=== PATIENT | female | born 1950 | race Caucasian/White ===

== ENCOUNTER 2023-01-26 10:37 | Inpatient (IN) | payer MEDICARE, MEDICAID ==
[~2023-01-26] VITALS: Ht 157.5 cm; Wt 48.4 kg
[2023-01-26 11:21] LABS: COVID AG,FIA SOURCE NASAL SWAB
[2023-01-26 11:52] LABS: INFLUENZA TYPE A NEGATIVE FOR TYPE A (NEGATIVE); INFLUENZA TYPE B NEGATIVE FOR TYPE B (NEGATIVE); SARS-COV2 (COVID) ANTIGEN,FIA Negative (Negative)
[2023-01-26 11:53] LABS: BASOPHILS % (AUTO) 0.8 % (0.0-2.0); EOSINOPHILS % (AUTO) 1.8 % (1.0-6.0); HEMATOCRIT 21.7 % (36-46); HEMOGLOBIN 7.4 g/dL (12.0-16.0); LYMPHOCYTES # (AUTO) 0.7 K/uL (1.0-4.8); LYMPHOCYTES % (AUTO) 6.9 % (22.0-44.0); MEAN CORPUSCULAR HGB CONC 34.3 G/dL (31.0-37.0); MEAN CORPUSCULAR VOLUME 93 fL (80-100); MONOCYTES # (AUTO) 0.8 K/uL (0.1-1.0); MONOCYTES % (AUTO) 7.6 % (2.0-9.0); NEUTROPHILS # (AUTO) 8.6 K/uL (1.8-7.7); NEUTROPHILS % (AUTO) 82.9 % (40.0-70.0); PLATELET COUNT (AUTO) 285 K/uL (150-450); RED BLOOD CELL COUNT(AUTO) 2.33 MIL/uL (4.00-5.20); RED CELL DISTRIBUTION WIDTH 14.5 % (11.5-14.5); WHITE BLOOD COUNT (AUTO) 10.4 K/uL (4.5-11.0)
[2023-01-26 12:06] LABS: CALCIUM, TOTAL 8.6 mg/dL (8.8-10.5); CREATININE 4.03 mg/dL (0.60-1.30); POTASSIUM 3.9 mmol/L (3.5-5.1)
[2023-01-26 12:11] LABS: ALBUMIN 2.6 g/dL (3.4-5.0); BILIRUBIN,TOTAL 0.3 mg/dL (0.1-1.0); TOTAL PROTEIN, SERUM 7.5 g/dL (6.4-8.2)
[2023-01-26 12:16] LABS: TROPONIN I-HIGH SENSITIVITY 72 ng/L (<51)
[2023-01-26 12:26] LABS: LACTIC ACID 1.1 mmol/L (0.4-2.0)
[2023-01-26] MEDS ORDERED: MORPHINE SULFATE 2 MG/ML SYRINGE IVP ONE (13:30)
[2023-01-26] MEDS ORDERED: ONDANSETRON HCL 4 MG/2 ML VIAL IVP ONE (13:30)
[2023-01-26] MEDS ORDERED: DEXTROSE 50%-WATER 25 GM/50 ML SYRINGE IVP PRN (17:15)
[2023-01-26] MEDS ORDERED: INSULIN LISPRO 100 UNITS/ML SQ PRN (17:15)
[2023-01-26] MEDS ORDERED: BISACODYL 10 MG RECTAL RECTAL SUPPOSITORY PR PRN (17:30)
[2023-01-26] MEDS ORDERED: HYDROCODONE/ACETAMINOPHEN 5-325 MG TABLET PO PRN (17:30)
[2023-01-26] MEDS ORDERED: IPRATROPIUM BROMIDE 0.5 MG/2.5 ML NEB SOLUTION NEB PRN (17:30)
[2023-01-26] MEDS ORDERED: MAGNESIUM HYDROXIDE SUSPENSION 30 ML UDCUP PO PRN (17:30)
[2023-01-26] MEDS ORDERED: ALBUTEROL SULFATE 2.5 MG/0.5 ML NEB SOLUTION NEB PRN (17:30)
[2023-01-26] MEDS ORDERED: ONDANSETRON HCL 4 MG/2 ML VIAL IVP PRN (17:30)
[2023-01-26] MEDS ORDERED: MORPHINE SULFATE 2 MG/ML SYRINGE IVP PRN (17:30)
[2023-01-26] MEDS ORDERED: ZOLPIDEM TARTRATE 5 MG TABLET PO PRN (17:30)
[2023-01-26] MEDS ORDERED: SODIUM CHLORIDE 0.9% 500 ML IV ONE (17:34)
[2023-01-26] MEDS: LevETIRAcetam 500 MG in DEXTROSE 5%-WATER 100 ML IV SCH ×2 (17:47→18:33)
[2023-01-26] MEDS: ACETAMINOPHEN 325 MG TABLET PO PRN (17:48)
[2023-01-26] MEDS: CALCIUM ACETATE 667 MG CAPSULE PO SCH (17:48)
[2023-01-26 18:14] VITALS: BP 70/70; PULSE 152; RESP 16; TEMP 97.5
[2023-01-26 19:24] LABS: TROPONIN I-HIGH SENSITIVITY 70 ng/L (<51)
[2023-01-26] MEDS: MIRTAZAPINE 15 MG TABLET PO SCH (21:21)
[2023-01-26] MEDS: TICAGRELOR 90 MG TABLET PO SCH (21:21)
[2023-01-27] VITALS (7 sets, daily range): BP systolic 135–166; BP diastolic 50–84; PULSE 52–85; RESP 16–20; TEMP 97.9–98.9
[2023-01-27] MEDS: HydrALAZINE HCL 50 MG TABLET PO SCH ×3 (00:25→15:08)
[2023-01-27] MEDS: HEPARIN SODIUM,PORCINE 5,000 UNITS/ML VIAL SQ SCH ×3 (00:26→15:08)
[2023-01-27] MEDS: LevETIRAcetam 500 MG in DEXTROSE 5%-WATER 100 ML IV SCH ×2 (04:55→18:19)
[2023-01-27 06:32] LABS: GLUCOMETER DEV NAME(LOC) 5S.2C; GLUCOSE,POINT OF CARE 155 MG/DL (70-110)
[2023-01-27] MEDS ORDERED: DEXTROSE 50%-WATER 25 GM/50 ML SYRINGE IVP PRN (06:45)
[2023-01-27] MEDS: INSULIN LISPRO 100 UNITS/ML SQ PRN ×2 (06:53→23:39)
[2023-01-27] MEDS: CALCIUM ACETATE 667 MG CAPSULE PO SCH ×3 (08:00→18:19)
[2023-01-27 08:46] LABS: GLUCOMETER DEV NAME(LOC) 5N.1C; GLUCOSE,POINT OF CARE 171 MG/DL (70-110)
[2023-01-27] MEDS: CloNIDine HCL 0.2 MG TABLET PO SCH (10:05)
[2023-01-27] MEDS: PANTOPRAZOLE SODIUM 40 MG/VIAL IVP SCH (10:05)
[2023-01-27] MEDS: TICAGRELOR 90 MG TABLET PO SCH ×2 (10:05→21:14)
[2023-01-27] MEDS: LOSARTAN POTASSIUM 50 MG TABLET PO SCH (10:05)
[2023-01-27] MEDS: ATORVASTATIN CALCIUM 20 MG TABLET PO SCH (10:06)
[2023-01-27] MEDS: FUROSEMIDE 80 MG TABLET PO SCH (10:06)
[2023-01-27] MEDS: AmLODIPine BESYLATE 10 MG TABLET PO SCH (10:06)
[2023-01-27] MEDS: MIRTAZAPINE 15 MG TABLET PO SCH (21:16)
[2023-01-27 23:36] LABS: GLUCOMETER DEV NAME(LOC) 5S.1B; GLUCOSE,POINT OF CARE 185 MG/DL (70-110)
[2023-01-28] MEDS: HydrALAZINE HCL 50 MG TABLET PO SCH ×4 (00:07→23:30)
[2023-01-28] MEDS: HEPARIN SODIUM,PORCINE 5,000 UNITS/ML VIAL SQ SCH ×4 (00:11→23:31)
[2023-01-28 05:28] VITALS: BP 138/74; PULSE 60; RESP 20
[2023-01-28 07:16] LABS: GLUCOMETER DEV NAME(LOC) 5S.2C; GLUCOSE,POINT OF CARE 130 MG/DL (70-110)
[2023-01-28] MEDS: LevETIRAcetam 500 MG in DEXTROSE 5%-WATER 100 ML IV SCH ×2 (07:21→17:17)
[2023-01-28] MEDS: FUROSEMIDE 80 MG TABLET PO SCH (08:26)
[2023-01-28] MEDS: PANTOPRAZOLE SODIUM 40 MG/VIAL IVP SCH (08:26)
[2023-01-28] MEDS: CloNIDine HCL 0.2 MG TABLET PO SCH (08:26)
[2023-01-28] MEDS: TICAGRELOR 90 MG TABLET PO SCH ×2 (08:28→20:21)
[2023-01-28] MEDS: AmLODIPine BESYLATE 10 MG TABLET PO SCH (08:28)
[2023-01-28] MEDS: CALCIUM ACETATE 667 MG CAPSULE PO SCH ×3 (08:28→18:04)
[2023-01-28] MEDS: ATORVASTATIN CALCIUM 20 MG TABLET PO SCH (08:29)
[2023-01-28] MEDS: LOSARTAN POTASSIUM 50 MG TABLET PO SCH (08:32)
[2023-01-28 08:41] VITALS: BP 168/55; PULSE 60; RESP 19; TEMP 98.2
[2023-01-28 11:24] VITALS: BP 121/44; PULSE 48; RESP 16; TEMP 97.7
[2023-01-28] MEDS: INSULIN LISPRO 100 UNITS/ML SQ PRN ×2 (11:58→20:23)
[2023-01-28 12:51] LABS: GLUCOMETER DEV NAME(LOC) 5S.2C; GLUCOSE,POINT OF CARE 178 MG/DL (70-110)
[2023-01-28] MEDS: ACETAMINOPHEN 325 MG TABLET PO PRN (12:56)
[2023-01-28 15:14] VITALS: BP 129/46; PULSE 73; RESP 16; TEMP 98.8
[2023-01-28 20:00] VITALS: BP 154/59; PULSE 50; RESP 17; TEMP 97.9
[2023-01-28] MEDS: MIRTAZAPINE 15 MG TABLET PO SCH (20:21)
[2023-01-28 21:21] LABS: GLUCOMETER DEV NAME(LOC) 5S.2C; GLUCOSE,POINT OF CARE 163 MG/DL (70-110)
[2023-01-28 23:27] VITALS: BP 162/71; PULSE 57; RESP 18; TEMP 98
[2023-01-29] VITALS (14 sets, daily range): BP systolic 103–186; BP diastolic 48–77; PULSE 59–81; RESP 1–22; TEMP 97.8–98.4
[2023-01-29] MEDS: LevETIRAcetam 500 MG in DEXTROSE 5%-WATER 100 ML IV SCH ×2 (05:39→18:53)
[2023-01-29 05:56] LABS: GLUCOMETER DEV NAME(LOC) 5S.2C; GLUCOSE,POINT OF CARE 129 MG/DL (70-110)
[2023-01-29] MEDS: HydrALAZINE HCL 50 MG TABLET PO SCH ×4 (08:00→23:55)
[2023-01-29] MEDS: AmLODIPine BESYLATE 10 MG TABLET PO SCH (09:00)
[2023-01-29] MEDS ORDERED: EPOETIN ALFA 10,000 UNITS/ML 2 ML VIAL SQ SCH (09:00)
[2023-01-29] MEDS: CloNIDine HCL 0.2 MG TABLET PO SCH (09:00)
[2023-01-29] MEDS: LOSARTAN POTASSIUM 50 MG TABLET PO SCH (09:00)
[2023-01-29] MEDS: PANTOPRAZOLE SODIUM 40 MG/VIAL IVP SCH (09:40)
[2023-01-29] MEDS: HEPARIN SODIUM,PORCINE 5,000 UNITS/ML VIAL SQ SCH ×3 (09:40→23:55)
[2023-01-29] MEDS: CALCIUM ACETATE 667 MG CAPSULE PO SCH ×3 (09:41→18:00)
[2023-01-29] MEDS: ATORVASTATIN CALCIUM 20 MG TABLET PO SCH (09:41)
[2023-01-29] MEDS: FUROSEMIDE 80 MG TABLET PO SCH (09:41)
[2023-01-29] MEDS: TICAGRELOR 90 MG TABLET PO SCH ×2 (09:41→20:38)
[2023-01-29] MEDS: ACETAMINOPHEN 325 MG TABLET PO PRN ×2 (09:55→15:54)
[2023-01-29 11:35] LABS: BASOPHILS % (AUTO) 0.8 % (0.0-2.0); EOSINOPHILS % (AUTO) 1.8 % (1.0-6.0); HEMATOCRIT 26.6 % (36-46); HEMOGLOBIN 8.8 g/dL (12.0-16.0); LYMPHOCYTES # (AUTO) 0.8 K/uL (1.0-4.8); LYMPHOCYTES % (AUTO) 8.8 % (22.0-44.0); MEAN CORPUSCULAR HEMOGLOBIN 31.2 pg (26.0-34.0); MEAN CORPUSCULAR HGB CONC 33.2 G/dL (31.0-37.0); MEAN CORPUSCULAR VOLUME 94 fL (80-100); MONOCYTES # (AUTO) 0.5 K/uL (0.1-1.0); MONOCYTES % (AUTO) 6.4 % (2.0-9.0); NEUTROPHILS # (AUTO) 7.1 K/uL (1.8-7.7); NEUTROPHILS % (AUTO) 82.2 % (40.0-70.0); PLATELET COUNT (AUTO) 372 K/uL (150-450); RED BLOOD CELL COUNT(AUTO) 2.83 MIL/uL (4.00-5.20); RED CELL DISTRIBUTION WIDTH 14.6 % (11.5-14.5); WHITE BLOOD COUNT (AUTO) 8.6 K/uL (4.5-11.0)
[2023-01-29 11:45] LABS: CALCIUM, TOTAL 9.7 mg/dL (8.8-10.5); CREATININE 7.03 mg/dL (0.60-1.30); POTASSIUM 5.7 mmol/L (3.5-5.1)
[2023-01-29 11:51] LABS: ALBUMIN 2.8 g/dL (3.4-5.0); BILIRUBIN,TOTAL 0.3 mg/dL (0.1-1.0); TOTAL PROTEIN, SERUM 8.5 g/dL (6.4-8.2)
[2023-01-29 13:21] LABS: GLUCOMETER DEV NAME(LOC) 5N.2C; GLUCOSE,POINT OF CARE 136 MG/DL (70-110)
[2023-01-29] MEDS ORDERED: SODIUM CHLORIDE 0.9% 1,000 ML ONE (14:24)
[2023-01-29] MEDS: MIRTAZAPINE 15 MG TABLET PO SCH (20:38)
[2023-01-30 00:07] VITALS: BP 164/71; PULSE 76; RESP 18; TEMP 98.1
[2023-01-30 04:03] VITALS: BP 166/81; PULSE 70; RESP 18; TEMP 98.3
[2023-01-30] MEDS: LevETIRAcetam 500 MG in DEXTROSE 5%-WATER 100 ML IV SCH (05:09)
[2023-01-30 07:03] VITALS: BP 147/58; PULSE 75; RESP 20; TEMP 98.6
[2023-01-30] MEDS: TICAGRELOR 90 MG TABLET PO SCH (08:10)
[2023-01-30] MEDS: LOSARTAN POTASSIUM 50 MG TABLET PO SCH (08:10)
[2023-01-30] MEDS: CALCIUM ACETATE 667 MG CAPSULE PO SCH ×2 (08:10→12:30)
[2023-01-30] MEDS: ATORVASTATIN CALCIUM 20 MG TABLET PO SCH (08:10)
[2023-01-30] MEDS: CloNIDine HCL 0.2 MG TABLET PO SCH (08:10)
[2023-01-30] MEDS: FUROSEMIDE 80 MG TABLET PO SCH (08:10)
[2023-01-30] MEDS: HydrALAZINE HCL 50 MG TABLET PO SCH (08:10)
[2023-01-30] MEDS: HEPARIN SODIUM,PORCINE 5,000 UNITS/ML VIAL SQ SCH (08:11)
[2023-01-30] MEDS: AmLODIPine BESYLATE 10 MG TABLET PO SCH (08:11)
[2023-01-30] MEDS: PANTOPRAZOLE SODIUM 40 MG/VIAL IVP SCH (08:11)
[2023-01-30 10:53] VITALS: BP 158/56; PULSE 64; RESP 18; TEMP 98.2
[2023-01-30] MEDS ORDERED: HYDR50TA36 PO ×2 (10:57→11:02)
[2023-01-30] MEDS ORDERED: CLON-441 PO (10:58)
[2023-01-30] MEDS ORDERED: LEVE500T8 PO (10:59)
[2023-01-30] MEDS ORDERED: LACT10SO85 PO (11:00)
[2023-01-30] MEDS ORDERED: QUET25TA PO (11:00)
[2023-01-30] MEDS ORDERED: ONDA-104 PO (11:01)
[2023-01-30] MEDS ORDERED: ATOR40TA28 PO (11:03)
[2023-01-30] MEDS ORDERED: HYDR-4396 PO ×2 (11:03)
[2023-01-30] MEDS ORDERED: LOSA100T59 PO (11:04)
[2023-01-30] MEDS ORDERED: DOCU250C15 PO (11:04)
[2023-01-30] MEDS ORDERED: FURO80TA87 PO (11:05)
[2023-01-30] MEDS ORDERED: [UNRECOGNIZED DRUG - CODE] TP (11:08)
[2023-01-30] MEDS ORDERED: AMLO10TA55 PO (11:08)
[2023-01-30] MEDS ORDERED: LABE200T83 PO (11:09)
[2023-01-30] MEDS ORDERED: TICA90TA PO (11:09)
[2023-01-30] MEDS ORDERED: PANT20TA18 PO (11:10)
[2023-01-30] MEDS ORDERED: SENN1TAB72 PO (11:11)
[2023-01-30] MEDS ORDERED: FOLI0.8T22 PO (11:11)
[2023-01-30] MEDS ORDERED: ASPI81TA39 PO (11:13)
[2023-01-30] MEDS ORDERED: DICL20GE TP (11:13)
[2023-01-30] MEDS ORDERED: INSU100V SQ (11:22)
[2023-01-30] MEDS ORDERED: NITR0.4T50 SL (11:24)
[2023-01-30] MEDS ORDERED: CALC500T7 PO (11:24)
[2023-01-30] MEDS ORDERED: ACET-784 PO (11:26)
[2023-01-30 12:02] LABS: GLUCOMETER DEV NAME(LOC) 5N.1C; GLUCOSE,POINT OF CARE 137 MG/DL (70-110)
[2023-01-30 12:02] LABS: GLUCOMETER DEV NAME(LOC) 5N.1C; GLUCOSE,POINT OF CARE 220 MG/DL (70-110)
[2023-01-30 12:06] LABS: GLUCOMETER DEV NAME(LOC) 5N.2C; GLUCOSE,POINT OF CARE 106 MG/DL (70-110)
[2023-01-30 12:06] LABS: GLUCOMETER DEV NAME(LOC) 5N.2C; GLUCOSE,POINT OF CARE 130 MG/DL (70-110)
[2023-01-30] MEDS: INSULIN LISPRO 100 UNITS/ML SQ PRN (12:30)
== END 2023-01-30 13:10 | DRG 70 ==
LOC: EMS 11:12 → 5S 13:42
PROVIDERS: ADMIT Hospitalist; ATTEND Hospitalist
PROC: 5A1D70Z Performance of Urinary Filtration, Intermittent, Less than 6 Hours Per Day (ICD-10-PCS; principal; 2023-01-29)
DX: G93.40 Encephalopathy, unspecified (principal); N18.6 End stage renal disease; I13.2 Hypertensive heart and chronic kidney disease with heart failure and with stage 5 chronic kidney disease, or end stage renal disease; N25.81 Secondary hyperparathyroidism of renal origin; E44.0 Moderate protein-calorie malnutrition; G91.0 Communicating hydrocephalus; Z68.1 Body mass index [BMI] 19.9 or less, adult; D63.1 Anemia in chronic kidney disease; G40.909 Epilepsy, unspecified, not intractable, without status epilepticus; I48.91 Unspecified atrial fibrillation; I50.9 Heart failure, unspecified; R51.9 Headache, unspecified; R07.9 Chest pain, unspecified; F41.9 Anxiety disorder, unspecified; F44.9 Dissociative and conversion disorder, unspecified; G93.89 Other specified disorders of brain; Z20.822 Contact with and (suspected) exposure to COVID-19; I25.10 Atherosclerotic heart disease of native coronary artery without angina pectoris; E78.5 Hyperlipidemia, unspecified; K21.9 Gastro-esophageal reflux disease without esophagitis; M19.90 Unspecified osteoarthritis, unspecified site; E11.22 Type 2 diabetes mellitus with diabetic chronic kidney disease; Z99.2 Dependence on renal dialysis; Z86.73 Personal history of transient ischemic attack (TIA), and cerebral infarction without residual deficits
CPT/HCPCS: 70450; 71045; 80053; 82962; 83605; 83690; 83880; 84145; 84484; 85025; 86706; 87040; 87804; 90935; 93005; 93306; 99285; C9113; J0712; J0885; J1644; J2270; J2405; J7030; J7040; J7060; 36415-L1; 36415-TC

== ENCOUNTER 2023-05-09 16:59 | Inpatient (IN) | payer MEDICARE, MEDICAID ==
[~2023-05-09] VITALS: Ht 157.5 cm; Wt 54.2 kg
[~2023-05-09 16:59] MED LIST: ACET-784 PO; AMLO10TA55 PO; ASPI81TA39 PO; ATOR40TA28 PO; CALC500T7 PO; CLON-441 PO; DICL20GE TP; DOCU250C15 PO; FOLI0.8T22 PO; FURO80TA87 PO; HYDR-4396 PO; HYDR50TA36 PO; INSU100V SQ; LABE200T83 PO; LACT10SO85 PO; LEVE500T8 PO; LOSA100T59 PO; NITR0.4T50 SL; ONDA-104 PO; PANT20TA18 PO; QUET25TA PO; SENN1TAB72 PO; TICA90TA PO; [UNRECOGNIZED DRUG - CODE] TP
[2023-05-09 18:56] LABS: BASOPHILS % (AUTO) 1.1 % (0.0-2.0); EOSINOPHILS % (AUTO) 3.8 % (1.0-6.0); HEMATOCRIT 28.9 % (36-46); HEMOGLOBIN 9.7 g/dL (12.0-16.0); LYMPHOCYTES # (AUTO) 0.8 K/uL (1.0-4.8); LYMPHOCYTES % (AUTO) 12.7 % (22.0-44.0); MEAN CORPUSCULAR HEMOGLOBIN 31.6 pg (26.0-34.0); MEAN CORPUSCULAR HGB CONC 33.5 G/dL (31.0-37.0); MEAN CORPUSCULAR VOLUME 94 fL (80-100); MONOCYTES # (AUTO) 0.6 K/uL (0.1-1.0); MONOCYTES % (AUTO) 8.9 % (2.0-9.0); NEUTROPHILS # (AUTO) 4.6 K/uL (1.8-7.7); NEUTROPHILS % (AUTO) 73.5 % (40.0-70.0); PLATELET COUNT (AUTO) 221 K/uL (150-450); RED BLOOD CELL COUNT(AUTO) 3.07 MIL/uL (4.00-5.20); RED CELL DISTRIBUTION WIDTH 15.8 % (11.5-14.5); WHITE BLOOD COUNT (AUTO) 6.3 K/uL (4.5-11.0)
[2023-05-09 19:05] LABS: ANION GAP 9 mmol/L (8-16); CALCIUM, TOTAL 9.2 mg/dL (8.8-10.5); CARBON DIOXIDE 32 mmol/L (22-29); CHLORIDE 97 mmol/L (98-107); GLOMERULAR FILTR. RATE CALC 12 mL/min (>60); GLUCOSE,RANDOM 169 mg/dL (70-110); POTASSIUM 4.1 mmol/L (3.5-5.1); SODIUM SERUM 138 mmol/L (136-145); UREA NITROGEN, BLOOD 33 mg/dL (7-18)
[2023-05-09 19:08] LABS: ALBUMIN 3.2 g/dL (3.4-5.0)
[2023-05-09 19:10] LABS: INR 1.1 (0.9-1.1); PROTHROMBIN TIME 11.1 SEC (9.4-11.6)
[2023-05-09 19:20] LABS: TROPONIN I-HIGH SENSITIVITY 52 ng/L (<51)
[2023-05-09 19:24] LABS: ALANINE AMINOTRANSFERASE 10 U/L (12-78); ALKALINE PHOSPHATASE 117 U/L (46-116); ASPARTATE AMINOTRANSFERASE 16 U/L (15-37); B-TYPE NATRIURETIC PEPTIDE 703 pg/mL (0-100); BILIRUBIN,TOTAL 0.4 mg/dL (0.1-1.0); CREATINE KINASE, TOTAL ONLY 25 U/L (26-192); TOTAL PROTEIN, SERUM 7.2 g/dL (6.4-8.2)
[2023-05-09 19:27] LABS: LACTIC ACID 1.1 mmol/L (0.4-2.0)
[2023-05-09] MEDS ORDERED: MORPHINE SULFATE 2 MG/ML SYRINGE IVP PRN (22:00)
[2023-05-09] MEDS ORDERED: ACETAMINOPHEN 325 MG TABLET PO PRN (22:00)
[2023-05-09] MEDS ORDERED: MAGNESIUM HYDROXIDE SUSPENSION 30 ML UDCUP PO PRN (22:00)
[2023-05-09] MEDS ORDERED: HYDROCODONE/ACETAMINOPHEN 5-325 MG TABLET PO PRN (22:00)
[2023-05-09] MEDS ORDERED: ONDANSETRON HCL 4 MG/2 ML VIAL IVP PRN (22:00)
[2023-05-09] MEDS ORDERED: BISACODYL 10 MG RECTAL RECTAL SUPPOSITORY PR PRN (22:00)
[2023-05-09] MEDS ORDERED: ZOLPIDEM TARTRATE 5 MG TABLET PO PRN (22:00)
[2023-05-09] MEDS: HydrALAZINE HCL 20 MG/ML VIAL IVP ONE (22:36)
[2023-05-09 23:06] LABS: TROPONIN I-HIGH SENSITIVITY 55 ng/L (<51)
[2023-05-09 23:11] LABS: COVID AG,FIA SOURCE NASAL SWAB
[2023-05-09 23:27] LABS: SARS-COV2 (COVID) ANTIGEN,FIA Negative (Negative)
[2023-05-10] VITALS (7 sets, daily range): BP systolic 108–156; BP diastolic 43–65; PULSE 51–54; RESP 18–20; TEMP 97.5–98.8
[2023-05-10] MEDS: HEPARIN SODIUM,PORCINE 5,000 UNITS/ML VIAL SQ SCH
[2023-05-10] MEDS: LevETIRAcetam 500 MG TABLET PO SCH (08:23)
[2023-05-10] MEDS: FUROSEMIDE 80 MG TABLET PO SCH (08:23)
[2023-05-10] MEDS: HydrALAZINE HCL 50 MG TABLET PO SCH (08:23)
[2023-05-10] MEDS: ASPIRIN 81 MG CHEWABLE TABLET PO SCH (08:23)
[2023-05-10] MEDS: ATORVASTATIN CALCIUM 40 MG TABLET PO SCH (08:23)
[2023-05-10] MEDS: PANTOPRAZOLE SODIUM 40 MG DR TABLET PO SCH (08:24)
[2023-05-10] MEDS: CloNIDine HCL 0.1 MG TABLET PO SCH (08:24)
[2023-05-10] MEDS: DOCUSATE SODIUM 100 MG CAPSULE PO SCH (08:24)
[2023-05-10] MEDS: TICAGRELOR 90 MG TABLET PO SCH (08:24)
[2023-05-10] MEDS: AmLODIPine BESYLATE 10 MG TABLET PO SCH (08:24)
[2023-05-10] MEDS: FOLIC ACID/VIT B COMPLEX AND C TABLET PO SCH (18:22)
[2023-05-10] MEDS: QUEtiapine FUMARATE 25 MG TABLET PO SCH (20:55)
[2023-05-11] VITALS (15 sets, daily range): BP systolic 139–173; BP diastolic 53–76; PULSE 51–60; RESP 16–20; TEMP 97–98.1
[2023-05-11] MEDS: EPOETIN ALFA 10,000 UNITS/ML VIAL SQ SCH (09:27)
[2023-05-12 00:16] VITALS: BP 154/66; PULSE 60; RESP 18; TEMP 98
[2023-05-12 00:22] VITALS: BP 115/66; PULSE 82; RESP 18; TEMP 99
[2023-05-12 04:27] VITALS: BP 141/76; PULSE 57; RESP 18; TEMP 97.8
[2023-05-12] MEDS: HydrALAZINE HCL 50 MG TABLET PO SCH (08:45)
[2023-05-12 09:24] VITALS: BP 184/67; PULSE 55; RESP 19; TEMP 97.4
[2023-05-12 11:50] VITALS: BP 148/52; PULSE 56; RESP 18; TEMP 98
[2023-05-12] MEDS ORDERED: INSU3INS3 SQ (12:40)
[2023-05-12] MEDS: LACTULOSE 20 GM/30 ML SOLUTION UDCUP PO ONE (13:17)
[2023-05-12 16:42] VITALS: BP 159/57; PULSE 56; RESP 18; TEMP 98.2
== END 2023-05-12 16:10 | DRG 73 ==
LOC: EMS 16:59 → 5S 23:12
PROVIDERS: ADMIT Internal Medicine; ATTEND Internal Medicine
PROC: 5A1D70Z Performance of Urinary Filtration, Intermittent, Less than 6 Hours Per Day (ICD-10-PCS; principal; 2023-05-09)
DX: G90.8 Other disorders of autonomic nervous system (principal); G93.41 Metabolic encephalopathy; N18.6 End stage renal disease; I12.0 Hypertensive chronic kidney disease with stage 5 chronic kidney disease or end stage renal disease; E72.20 Disorder of urea cycle metabolism, unspecified; E11.43 Type 2 diabetes mellitus with diabetic autonomic (poly)neuropathy; E11.22 Type 2 diabetes mellitus with diabetic chronic kidney disease; Z20.822 Contact with and (suspected) exposure to COVID-19; E78.5 Hyperlipidemia, unspecified; D64.9 Anemia, unspecified; K21.9 Gastro-esophageal reflux disease without esophagitis; R00.1 Bradycardia, unspecified; E03.9 Hypothyroidism, unspecified; F03.90 Unspecified dementia, unspecified severity, without behavioral disturbance, psychotic disturbance, mood disturbance, and anxiety; I25.10 Atherosclerotic heart disease of native coronary artery without angina pectoris; Z79.02 Long term (current) use of antithrombotics/antiplatelets; Z79.82 Long term (current) use of aspirin; Z79.899 Other long term (current) drug therapy; Z99.2 Dependence on renal dialysis
CPT/HCPCS: 70450; 71045; 80053; 82140; 82550; 83605; 83880; 84145; 84439; 84443; 84484; 85025; 85610; 85730; 87340; 90935; 93005; 93306; 99285; J0360; J0885; J1644; 36415-L1; 36415-TC

== ENCOUNTER → 2024-01-11 | Outpatient (CLI) | payer MEDICARE, MEDICAID ==
[~2024-01-11] MED LIST changes: +INSU3INS3 SQ; +LABE200T58 PO; -LABE200T83 PO; +SENN-7 PO; -SENN1TAB72 PO
== END | disposition home or self-care (01) ==
LOC: RADMN 09:20
PROVIDERS: ATTEND General Practice
DX: G93.89 Other specified disorders of brain (principal); G91.9 Hydrocephalus, unspecified
CPT/HCPCS: 70450